=== PATIENT | female | born 1990 | race Caucasian/White ===

== ENCOUNTER 2018-12-24 14:26 | Emergency (ER) | payer SELFPAY ==
[~2018-12-24] VITALS: Ht 165.1 cm; Wt 68.2 kg
[2018-12-24 14:39] VITALS: Ht 165.1 cm; Wt 68.2 kg
[2018-12-24] MEDS ORDERED: RANITIDINE 150 MG TAB PO ONE (16:00)
[2018-12-24] MEDS ORDERED: RANI150T35 PO (18:00)
--- NOTE | 2018-12-24 18:05 | ERD ---
ER Documentation Chief Complaint Chief Complaint increasing swelling/pain below L breast X 3 months, radiating AP HPI 28-year-old female patient with no significant past medical history presents to ED complaining of left upper quadrant abdominal pain that started intermittently for the last 3 months. States that she feels a bump in that area. Reports it radiates to her abdomen. Denies any nausea, vomiting, diarrhea, neck stiffness. Denies any chest pain, shortness of breath, cough, rhinorrhea. ROS All systems reviewed and are negative except as per history of present illness. Medications Home Meds Active Scripts Ranitidine Hcl* (Zantac*) 150 Mg Tablet, 150 MG PO BID PRN for EPIGASTRIC PAIN, #30 TAB Prov:LAQUITA HOLLIDAY PA-C 12/24/18 Allergies Allergies: Coded Allergies: No Known Allergy (Unverified , 12/24/18) PMhx/Soc History of Surgery: Yes (dental surgery) Hx Alcohol Use: No Hx Substance Use: No Hx Tobacco Use: No Smoking Status: Never smoker FmHx Family History: No diabetes, No coronary disease Physical Exam Vitals Vital Signs Date Temp Pulse Resp B/P (MAP) Pulse Ox O2 O2 Flow FiO2 Time Delivery Rate 12/24/18 99.2 92 18 150/69 100 14:39 (96) Physical Exam Const: Oon-mel-wzwltorex, well-nourished. In no acute distress. Head: Atraumatic, normocephalic Eyes: Normal Conjunctiva without injection. No purulent discharge. ENT: Normal external ear, nose. Moist oropharynx without tonsillar exudates. Non-erythematous pharynx. Uvula midline. No drooling. No trismus. Neck: No cervical midline tenderness. Full range of motion. No meningismus. No cervical lymphadenopathy. No JVD. Resp: Clear to auscultation bilaterally. No wheezing, rhonchi, rales, or crackles. No accessory muscle use. No retractions. Cardio: Regular rate and rhythm. No murmurs, rubs or gallops. Abd: Soft, left upper quadrant abdominal pain, non distended. Normal bowel sounds. No palpable masses. No rebound tenderness. No guarding. Negative McBurney's point. Negative psoas sign. Negative obturator sign. Skin: No petechiae or rashes Back: No midline tenderness. No CVA tenderness. Ext: No cyanosis, or edema. Neur: Awake and alert. Normal gait. Normal coordination. Psych: Normal Mood and Affect Results 24 hrs Laboratory Tests Test 12/24/18 16:10 12/24/18 16:19 12/24/18 16:24 White Blood Count 8.7 10^3/ul Red Blood Count 4.84 10^6/ul Hemoglobin 13.0 g/dl Hematocrit 40.5 % Mean Corpuscular Volume 83.7 fl Mean Corpuscular Hemoglobin 26.9 pg Mean Corpuscular 32.1 g/dl Hemoglobin Concent Red Cell Distribution Width 13.8 % Platelet Count 283 10^3/UL Mean Platelet Volume 9.7 fl Immature Granulocytes % 0.200 % Neutrophils % 63.3 % Lymphocytes % 28.4 % Monocytes % 6.9 % Eosinophils % 0.7 % Basophils % 0.5 % Nucleated Red Blood Cells % 0.0 /100WBC Immature Granulocytes # 0.020 10^3/ul Neutrophils # 5.5 10^3/ul Lymphocytes # 2.5 10^3/ul Monocytes # 0.6 10^3/ul Eosinophils # 0.1 10^3/ul Basophils # 0.0 10^3/ul Nucleated Red Blood Cells # 0.0 10^3/ul Sodium Level 143 mmol/L Potassium Level 3.7 mmol/L Chloride Level 106 mmol/L Carbon Dioxide Level 25 mmol/L Anion Gap 12 Blood Urea Nitrogen 13 mg/dl Creatinine 0.70 mg/dl Est Glomerular Filtrat > 60 mL/min Rate mL/min Glucose Level 95 mg/dl Calcium Level 9.8 mg/dl Total Bilirubin 0.1 mg/dl Direct Bilirubin 0.00 mg/dl Indirect Bilirubin 0.1 mg/dl Aspartate Amino Transf (AST/SGOT) 22 IU/L Alanine 13 IU/L Aminotransferase (ALT/SGPT) Alkaline Phosphatase 93 IU/L Total Protein 8.6 g/dl Albumin 5.0 g/dl Globulin 3.60 g/dl Albumin/Globulin Ratio 1.38 Lipase 74 U/L Urine Color YELLOW Urine Clarity SLIGHTLY CLOUDY Urine pH 5.0 Urine Specific [place] 1.027 Urine Ketones NEGATIVE mg/dL Urine Nitrite NEGATIVE mg/dL Urine Bilirubin NEGATIVE mg/dL Urine Urobilinogen NEGATIVE mg/dL Urine Leukocyte Esterase NEGATIVE Van/ul Urine Microscopic RBC 1 /HPF Urine Microscopic WBC 2 /HPF Urine Squamous Epithelial Cells FEW /HPF Urine Bacteria FEW /HPF Urine Mucus FEW /HPF Urine Hemoglobin 1+ mg/dL Urine Glucose NEGATIVE mg/dL Urine Total Protein NEGATIVE mg/dl POC Beta HCG, Qualitative NEGATIVE Current Medications Medications Dose Sig/Ravindra Start Time Status Last (Trade) Ordered Route PRN Stop Time Admin Dose Reason Admin Ranitidine 150 mg ONCE ONCE 12/24/18 DC 12/24/18 HCl PO 16:00 12/24/18 15:59 (Zantac) 16:01 Procedures/MDM 28-year-old female patient with no significant past medical history presents to ED complaining of left lower quadrant abdominal pain. Patient is afebrile and nontoxic-appearing. Patient was further worked up with CBC, CMP, lipase, UA, urine . Patient's pain and symptoms have improved after treatment with ranitidine helps with the burning sensation of her left upper quadrant. CBC: No leukocytosis. No e/o of systemic infection. No e/o anemia. CMP: No e/o severe acidosis, alkalosis, renal failure, diabetic ketoacidosis, liver disease Lipase within normal limits. Urine: No leukocyte esterase, no nitrites, 1+ hematuria. Urine : Negative Differentials include gastritis versus GERD. Low suspicion for ectopic , ovarian torsion, cholecystitis, choledocholithiasis, cholangitis, pancreatitis, appendicitis, bowel obstruction, ileus, volvulus, nephrolithiasis, pyelonephritis, hepatitis, perforated viscus, diverticulitis, strangulated/incarcerated hernia, DKA, acute abdomen, mesenteric ischemia or oth er emergent conditions. There is no bump that patient is describing at this time. However I instructed patient that if an abscess or infected sebaceous cyst forms, she can return to the ED for any worsening symptoms, evaluation or incision and drainage. 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 Instructed patient to return to the ED sooner for any worsening symptoms. Patient's questions were answered. Patient understood and agreed with discharge plan. Patient discharged stable. Departure Diagnosis: Primary Impression: Intermittent left upper quadrant abdominal pain Condition: Stable Patient Instructions: Gerd (Adult), Gastritis Vs. Ulcer, Epigastric Pain (Uncertain Cause) Referrals: COMM[facility]ITY CLINICS YOU HAVE RECEIVED A MEDICAL SCREENING EXAM AND THE RESULTS INDICATE THAT YOU DO NOT HAVE A CONDITION THAT REQUIRES URGENT TREATMENT IN THE EMERGENCY DEPARTMENT. FURTHER EVALUATION AND TREATMENT OF YOUR CONDITION CAN WAIT UNTIL YOU ARE SEEN IN YOUR DOCTORS OFFICE WITHIN THE NEXT 1-2 DAYS. IT IS YOUR RESPONSIBILITY TO MAKE AN APPOINTMENT FOR FOLOW-UP CARE. IF YOU HAVE A PRIMARY DOCTOR --you should call your primary doctor and schedule an appointment IF YOU DO NOT HAVE A PRIMARY DOCTOR YOU CAN CALL OUR PHYSICIAN REFERRAL HOTLINE AT IF YOU CAN NOT AFFORD TO SEE A PHYSICIAN YOU CAN CHOSE FROM THE FOLLOWING [facility] [address] [facility] [address] [facility]. [facility] [address] [facility] [address] [facility] [address] [facility]. [facility] [address] [facility] YOU HAVE RECEIVED A MEDICAL SCREENING EXAM AND THE RESULTS INDICATE THAT YOU DO NOT HAVE A CONDITION THAT REQUIRES URGENT TREATMENT IN THE EMERGENCY DEPARTMENT. FURTHER EVALUATION AND TREATMENT OF YOUR CONDITION CAN WAIT UNTIL YOU ARE SEEN IN YOUR DOCTORS OFFICE WITHIN THE NEXT 1-2 DAYS. IT IS YOUR RESPONSIBILITY TO MAKE AN APPOINTMENT FOR FOLOW-UP CARE. IF YOU HAVE A PRIMARY DOCTOR --you should call your primary doctor and schedule and appointment IF YOU DO NOT HAVE A PRIMARY DOCTOR YOU CAN CALL OUR PHYSICIAN REFERRAL HOTLINE AT . IF YOU CAN NOT AFFORD TO SEE A PHYSICIAN YOU CAN CHOSE FROM THE FOLLOWING [facility]: [facility] [address] [place] [address] [facility] [address] [place] [address] LOCATED WITHIN [facility] [address] [place] [address] [facility] Additional Instructions: Call your primary care doctor TOMORROW for an appointment during the next 2-3 days.See the doctor sooner or return here if your condition worsens before your appointment time. LAQUITA HOLLIDAY PA-C Dec 24, 2018 18:05
[2018-12-24 18:32] VITALS: BP 148/65; PULSE 77; RESP 19
== END 2018-12-24 18:33 | disposition home or self-care (01) ==
LOC: FTE 14:26
DX: R10.12 Left upper quadrant pain (principal)
CPT/HCPCS: 36415; 80053; 81001; 81025; 83690; 85025; 99283